=== PATIENT | female | born 1995 | race Caucasian/White ===

== ENCOUNTER 2016-11-30 16:27 | Emergency (ER) | payer SELFPAY ==
[2016-11-30 16:56] VITALS: TEMP 98.1
--- NOTE | 2016-11-30 17:11 | ED.PDOC ---
History of Present Illness - General Chief Complaint: ENT Problem Stated Complaint: right ear pain, dental pain Time Seen by Provider: 11/30/16 17:09 Source: patient Exam Limitations: no limitations - History of Present Illness Initial Comments: The patient is a 21-year-old female presenting to the emergency room secondary topain to the right side of her face that radiates between her posterior molar of her right mandible and her ear on the right side pain has been increasing over the last couple of days. She has had difficulty with activities recently in the past and completed a course of antibiotics about 2 weeks ago for it. She has not seen a dentist recently but is scheduled to see one next week. No fevers. No obvious abscess. No problems with hearing. No rash. Severity: moderate Improving Factors: nothing Worsening Factors: eating Associated Symptoms: denies symptoms Allergies/Adverse Reactions: Allergies Codeine Allergy (Verified 11/30/16 16:56) Rash Acetaminophen [From Hydrocodone W/Acetaminophen] Adverse Reaction (Mild, Verified 11/30/16 16:56) Rash rash and itching Hydrocodone [From Hydrocodone W/Acetaminophen] Adverse Reaction (Mild, Verified 11/30/16 16:56) Rash rash and itching Home Medications: Ambulatory Orders Iynpckdekkdtg-Xdot-Spysibzwys [Fioricet] 1 ea PO Q8H PRN #21 tab 11/30/16 Cephalexin Monohydrate [Keflex] 500 mg PO Q8H #30 cap 11/30/16 Review of Systems - Review of Systems Constitutional: States: malaise EENTM: States: ear pain, mouth pain Respiratory: States: no symptoms reported Cardiology: States: no symptoms reported Gastrointestinal/Abdominal: States: no symptoms reported Genitourinary: States: no symptoms reported Musculoskeletal: States: no symptoms reported Skin: States: no symptoms reported Neurological: States: no symptoms reported Endocrine: States: no symptoms reported All other Systems: No Change from Baseline Past Medical History (General) - Patient Medical History Hx Seizures: No Hx Stroke: No Hx Dementia: No Hx Asthma: No Hx of COPD: No Hx Cardiac Disorders: No Hx Congestive Heart Failure: No Hx Pacemaker: No Hx Hypertension: No Hx Thyroid Disease: No Hx Diabetes: No Hx Gastroesophageal Reflux: No Hx Renal Disease: No Hx Cancer: No Hx of HIV: No Hx Hepatitis C: No Hx MRSA: No Surgical History: tonsillectomy - Vaccination History Hx Tetanus, Diphtheria Vaccination: Yes Hx Influenza Vaccination: No Hx Pneumococcal Vaccination: No - Social History Hx Tobacco Use: No Hx Chewing Tobacco Use: No Hx Alcohol Use: No Hx Substance Use: No Hx Substance Use Treatment: No Hx Depression: No Hx Physical Abuse: No Hx Emotional Abuse: No Hx Suspected Abuse: No - Activities of Daily Living Hospice Agency (if applicable):: None - Female History Patient is a Female of Child Bearing Age (10 -59 yrs old): Yes Hx Last Menstrual Period: 07/31/16 Patient : No Expected Date of Delivery:: 02/13/15 Hx Gestational Age: 8 Family Medical History - Family History Brother Name: Shelby Juarez Age (years): 21, 17 Living Status: Still Living Hx Family Asthma: Yes Hx Family Congestive Heart Failure: No Hx Family Hypertension: No Hx Family Stroke: No Hx Cardiac Disease: No Hx Family Diabetes: No Hx Family Cancer: No Maternal Grandparents Name: Kendra grandmother and Ra grandfather Age (years): 56 (kendra) Living Status: Still Living Age at (years of age): 47 Cause of : Ra- diabetes, was on dialysis Hx Family Asthma: No Hx Family Congestive Heart Failure: No Hx Family Hypertension: Yes - unknown age, both grandparents Hx Family Stroke: Yes - Ra Age of Onset (years of age): 35 Hx Cardiac Disease: No Hx Family Diabetes: Yes - both Age of Onset (years of age): 17 Hx Family Cancer: No Mother Family History: Unknown Name: Sarah Leggett Age (years): 38 Living Status: Still Living Hx Family Asthma: No Hx Family Congestive Heart Failure: No Hx Family Hypertension: Yes Age of Onset (years of age): 35 Hx Family Stroke: No Hx Cardiac Disease: No Hx Family Diabetes: No Hx Family Cancer: No Father Family History: Unknown Name: Neftaly Leggett Age (years): 40 Living Status: Still Living Hx Family Asthma: No Hx Family Congestive Heart Failure: No Hx Family Hypertension: No Hx Family Stroke: No Hx Cardiac Disease: No Hx Family Diabetes: No Hx Family Cancer: No Hx Family;Other: has gout Physical Exam - Physical Exam General Appearance: Alert, Comfortable, No apparent distress Eye Exam: bilateral normal Ears, Nose, Throat: hearing grossly normal, normal pharynx, other - the patient does have a fractured posterior molar on the right lower mandible Neck: non-tender, full range of motion, supple Respiratory: chest non-tender, lungs clear, normal breath sounds, no respiratory distress, no accessory muscle use Cardiovascular/Chest: normal peripheral pulses, regular rate, rhythm, no edema Peripheral Pulses: radial,right: 2+, radial,left: 2+ Gastrointestinal/Abdominal: normal bowel sounds, non tender Rectal Exam: deferred Back Exam: normal inspection Extremity: normal range of motion, non-tender, normal inspection, no pedal edema , normal capillary refill Neurologic: alert, normal mood/affect, oriented x 3 Skin Exam: normal color Comments: Vital Signs - 24 hr 11/30/16 16:42 Temperature 98.1 F Pulse Rate [ 79 pulse ox] Respiratory 20 Rate Blood Pressure 132/79 [Left Arm] O2 Sat by Pulse 98 Oximetry Progress - Progress Progress: 11/30/16 17:11 the patient is a 21-year-old female presenting to the emergency room secondary to pain from dental caries referring to her right ear. The patient will be placed on Keflex 500 mg 3 times daily for 10 days and she will be written for some Fioricet as well for discomfort. She can use ibuprofen as well for discomfort. She needs to get set up with a dentist for definitive care. ER warnings were given for any acute deterioration. Departure - Departure Clinical Impression: Infected dental caries Disposition: Discharge to Home or Self Care Condition: Fair Departure Forms: ED Discharge - Pt. Copy, Patient Portal Self Enrollment Instructions: DI for Tooth Decay Diet: regular diet Activity: increase activity as tolerated Prescriptions: Fdryyerwtbqlq-Ixtc-Hvyszleiks [Fioricet] 1 ea PO Q8H PRN #21 tab PRN Reason: Pain Cephalexin Monohydrate [Keflex] 500 mg PO Q8H #30 cap Home Medications: Ambulatory Orders Hpeekjzzjzaxk-Woqn-Jucfpprvpn [Fioricet] 1 ea PO Q8H PRN #21 tab 11/30/16 Cephalexin Monohydrate [Keflex] 500 mg PO Q8H #30 cap 11/30/16 Additional Instructions: the patient is a 21-year-old female presenting to the emergency room secondary to pain from dental caries referring to her right ear. The patient will be placed on Keflex 500 mg 3 times daily for 10 days and she will be written for some Fioricet as well for discomfort. She can use ibuprofen as well for discomfort. She needs to get set up with a dentist for definitive care. ER warnings were given for any acute deterioration.
[2016-11-30 17:23] VITALS: BP 125/91; O2SAT 99
== END 2016-11-30 17:20 | disposition home or self-care (01) ==
LOC: ER 16:27
DX: K04.7 Periapical abscess without sinus (principal); Z88.6 Allergy status to analgesic agent

== ENCOUNTER 2017-11-06 10:11 | Emergency (ER) | payer SELFPAY ==
[2017-11-06 10:31] VITALS: TEMP 98
[2017-11-06] MEDS: ALUMINUM & MAGNESIUM HYDROXIDE 30 ML UD PO ONE (10:55)
[2017-11-06] MEDS: ONDANSETRON ODT 8 MG TAB SL ONE (10:57)
--- NOTE | 2017-11-06 11:09 | ED.PDOC ---
History of Present Illness - General Chief Complaint: GI Problem Time Seen by Provider: 11/06/17 10:30 Source: patient Exam Limitations: no limitations - History of Present Illness Initial Comments: The patient is a 22-year-old female presenting to the emergency roomecondary to mild generalized abdominal pain a little worse in the epigastric area for the last 24 hours. She's had some mild nausea. no vomiting. She did have some mild constipation that is turned and mild diarrhea. No urinary symptoms. No fevers. No sore throat runny nose cough or congestion. Her only abdominal surgery as a . Timing/Duration: 24 hours Severity: mild Improving Factors: nothing Worsening Factors: nothing Associated Symptoms: loss of appetite, malaise, nausea/vomiting Allergies/Adverse Reactions: Allergies Codeine Allergy (Verified 11/30/16 16:56) Rash Acetaminophen [From Hydrocodone W/Acetaminophen] Adverse Reaction (Mild, Verified 11/30/16 16:56) Rash rash and itching Hydrocodone [From Hydrocodone W/Acetaminophen] Adverse Reaction (Mild, Verified 11/30/16 16:56) Rash rash and itching Home Medications: Ambulatory Orders Dojyfgcxsozxv-Smac-Djykvcouge [Fioricet] 1 ea PO Q8H PRN #21 tab 11/30/16 Cephalexin Monohydrate [Keflex] 500 mg PO Q8H #30 cap 11/30/16 Ciprofloxacin [Cipro] 500 mg PO BID #10 tab 11/06/17 Famotidine 20 mg PO DAILY #30 tab 11/06/17 Ondansetron [Zofran Odt] 4 mg PO Q4H PRN #10 tab 11/06/17 Review of Systems - Review of Systems Constitutional: States: malaise EENTM: States: no symptoms reported Respiratory: States: no symptoms reported Cardiology: States: no symptoms reported Gastrointestinal/Abdominal: States: abdominal pain, constipation, diarrhea, nausea. Denies: vomiting Genitourinary: States: no symptoms reported Musculoskeletal: States: no symptoms reported Skin: States: no symptoms reported Neurological: States: no symptoms reported Endocrine: States: no symptoms reported All other Systems: No Change from Baseline Past Medical History (General) - Patient Medical History Hx Seizures: No Hx Stroke: No Hx Dementia: No Hx Asthma: No Hx of COPD: No Hx Cardiac Disorders: No Hx Congestive Heart Failure: No Hx Pacemaker: No Hx Hypertension: No Hx Thyroid Disease: No Hx Diabetes: No Hx Gastroesophageal Reflux: No Hx Renal Disease: No Hx Cancer: No Hx of HIV: No Hx Hepatitis C: No Hx MRSA: No Surgical History: no surgical history - Vaccination History Hx Tetanus, Diphtheria Vaccination: Yes Hx Influenza Vaccination: No Hx Pneumococcal Vaccination: No - Social History Hx Tobacco Use: No Hx Chewing Tobacco Use: No Hx Alcohol Use: No Hx Substance Use: No Hx Substance Use Treatment: No Hx Depression: No Hx Physical Abuse: No Hx Emotional Abuse: No Hx Suspected Abuse: No - Female History Hx Last Menstrual Period: 07/31/16 Patient : No Expected Date of Delivery:: 02/13/15 Hx Gestational Age: 8 Family Medical History - Family History Brother Name: Shelby Juarez Age (years): 21, 17 Living Status: Still Living Hx Family Asthma: Yes Hx Family Congestive Heart Failure: No Hx Family Hypertension: No Hx Family Stroke: No Hx Cardiac Disease: No Hx Family Diabetes: No Hx Family Cancer: No Maternal Grandparents Name: Kendra grandmother and Ra grandfather Age (years): 56 (kendra) Living Status: Still Living Age at (years of age): 47 Cause of : Ra- diabetes, was on dialysis Hx Family Asthma: No Hx Family Congestive Heart Failure: No Hx Family Hypertension: Yes - unknown age, both grandparents Hx Family Stroke: Yes - Ra Age of Onset (years of age): 35 Hx Cardiac Disease: No Hx Family Diabetes: Yes - both Age of Onset (years of age): 17 Hx Family Cancer: No Mother Family History: Unknown Name: Sarah Leggett Age (years): 38 Living Status: Still Living Hx Family Asthma: No Hx Family Congestive Heart Failure: No Hx Family Hypertension: Yes Age of Onset (years of age): 35 Hx Family Stroke: No Hx Cardiac Disease: No Hx Family Diabetes: No Hx Family Cancer: No Father Family History: Unknown Name: Neftaly Leggett Age (years): 40 Living Status: Still Living Hx Family Asthma: No Hx Family Congestive Heart Failure: No Hx Family Hypertension: No Hx Family Stroke: No Hx Cardiac Disease: No Hx Family Diabetes: No Hx Family Cancer: No Hx Family;Other: has gout Physical Exam - Physical Exam General Appearance: Alert, Comfortable, No apparent distress Eye Exam: bilateral normal Ears, Nose, Throat: hearing grossly normal, normal ENT inspection, normal pharynx Neck: full range of motion, supple Respiratory: lungs clear, normal breath sounds, no respiratory distress, no accessory muscle use Cardiovascular/Chest: normal peripheral pulses, regular rate, rhythm, no edema Peripheral Pulses: radial,right: 2+, radial,left: 2+, dorsalis pedis,right: 2+, dorsalis pedis,left: 2+ Gastrointestinal/Abdominal: soft, other - mild epigastric discomfort palpation. No rebound or peritoneal signs. No definite palpable masses. Rectal Exam: deferred Back Exam: no CVA tenderness, no vertebral tenderness Extremity: normal range of motion, non-tender, normal inspection, no pedal edema , normal capillary refill Neurologic: dredge or [place] hand II-XII nml as tested, alert, normal mood/affect, oriented x 3 Skin Exam: normal color Comments: Vital Signs - 8 hr 11/06/17 11/06/17 10:20 10:57 Temperature 98.0 F Pulse Rate [ 78 71 left brachial] Respiratory 20 16 Rate Blood Pressure 102/66 95/51 [left brachial] O2 Sat by Pulse 96 94 L Oximetry Progress - Progress Progress: 11/06/17 11:09 the patient is a 22-year-old female presenting with what appears to be a mild gastritis that is possibly viral in origin but may also be contributed to by a current cystitis/UTI that she has at this time. The patient is given a dose of Rocephin and will be started on oral ciprofloxacin for 5 days for the urinary tract infection. The urine will be cultured. She should follow up with her primary care doctor next week for follow-up of the urine culture and a repeat urinalysis for test of cure. For the gastritis the patient is going to be written for Zofran for as needed use for nausea and vomiting. Additionally she can hot die picker Pepcid and take that for the next few weeks to help reduce gastritis symptoms and she can hot die picker some Maalox for use as needed over the next couple of days as needed. She is to keep herself well hydrated and maintain a bland diet. Obviously she needs to return to the emergency room for any significant worsening, which would indicate a need for additional workup. - Results/Orders Results/Orders: Laboratory Tests 11/06/17 11/06/17 10:46 10:51 Urine Color Yellow Urine Appearance Clear Urine pH 5.5 Ur Specific [place] 1.025 Urine Protein Negative Urine Glucose (UA) Negative Urine Ketones Negative Urine Blood Small H Urine Nitrite Negative Urine Bilirubin Negative Urine Urobilinogen 0.2 Ur Leukocyte Esterase Trace H Urine RBC 1-3 Urine WBC 20-30 H Ur Epithelial Cells >50 Urine Bacteria 3+ H Urine Mucus Trace Urine HCG, Qual Negative Departure - Departure Clinical Impression: Gastroenteritis, UTI (lower urinary tract infection) Disposition: Discharge to Home or Self Care Condition: Fair Departure Forms: ED Discharge - Pt. Copy, Patient Portal Self Enrollment Instructions: DI for Gastritis, DI for Urinary Tract Infection (UTI) Diet: bland diet Activity: increase activity as tolerated Prescriptions: Ciprofloxacin [Cipro] 500 mg PO BID #10 tab Famotidine 20 mg PO DAILY #30 tab Ondansetron [Zofran Odt] 4 mg PO Q4H PRN #10 tab PRN Reason: Vomiting Home Medications: Ambulatory Orders Bbwaohbzcefwd-Ynyt-Gpljwxlpir [Fioricet] 1 ea PO Q8H PRN #21 tab 11/30/16 Cephalexin Monohydrate [Keflex] 500 mg PO Q8H #30 cap 11/30/16 Ciprofloxacin [Cipro] 500 mg PO BID #10 tab 11/06/17 Famotidine 20 mg PO DAILY #30 tab 11/06/17 Ondansetron [Zofran Odt] 4 mg PO Q4H PRN #10 tab 11/06/17 Additional Instructions: the patient is a 22-year-old female presenting with what appears to be a mild gastritis that is possibly viral in origin but may also be contributed to by a current cystitis/UTI that she has at this time. The patient is given a dose of Rocephin and will be started on oral ciprofloxacin for 5 days for the urinary tract infection. The urine will be cultured. She should follow up with her primary care doctor next week for follow-up of the urine culture and a repeat urinalysis for test of cure. For the gastritis the patient is going to be written for Zofran for as needed use for nausea and vomiting. Additionally she can hot die picker Pepcid and take that for the next few weeks to help reduce gastritis symptoms and she can hot die picker some Maalox for use as needed over the next couple of days as needed. She is to keep herself well hydrated and maintain a bland diet. Obviously she needs to return to the emergency room for any significant worsening, which would indicate a need for additional workup.
[2017-11-06] MEDS ORDERED: LIDOCAINE 1% 10 ML VIAL INJ ONE (11:13)
[2017-11-06] MEDS ORDERED: cefTRIAXone SODIUM 1 GM VIAL ONE (11:30)
[2017-11-06] MEDS: cefTRIAXone SODIUM 1 GM VIAL IM ONE (11:47)
[2017-11-06 12:02] VITALS: BP 111/76; O2SAT 96
== END 2017-11-06 12:04 | disposition home or self-care (01) ==
LOC: ER 10:11
DX: K52.9 Noninfective gastroenteritis and colitis, unspecified (principal); N39.0 Urinary tract infection, site not specified
CPT/HCPCS: 36416; 81001; 81025; 87086; 87502; J0696

== ENCOUNTER 2018-02-10 10:02 | Emergency (ER) | payer OTHER ==
[2018-02-10 10:17] VITALS: TEMP 99.1
--- NOTE | 2018-02-10 10:19 | ED.PDOC ---
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 Abdominal Pain Onset Location: epigastric Pain Radiation: no radiation, epigastric Quality: intermittent, sharpness Timing/Duration: other - 4 days Improving Factors: nothing Worsening Factors: eating Associated Symptoms: denies symptoms Review of Systems - Review of Systems Constitutional: States: no symptoms reported EENTM: States: no symptoms reported Respiratory: States: no symptoms reported Cardiology: States: no symptoms reported Gastrointestinal/Abdominal: States: see HPI Musculoskeletal: States: no symptoms reported All other Systems: Reviewed and Negative, No Change from Baseline Past Medical History (General) - Patient Medical History Hx Seizures: No Hx Stroke: No Hx Dementia: No Hx Asthma: No Hx of COPD: No Hx Cardiac Disorders: No Hx Congestive Heart Failure: No Hx Pacemaker: No Hx Hypertension: No Hx Thyroid Disease: No Hx Diabetes: No Hx Gastroesophageal Reflux: No Hx Renal Disease: No Hx Cancer: No Hx of HIV: No Hx Hepatitis C: No Hx MRSA: No Hx Other PMH: Yes - Charcot Di tooth disease Surgical History: tonsillectomy, other - Vaccination History Hx Tetanus, Diphtheria Vaccination: Yes Hx Influenza Vaccination: No Hx Pneumococcal Vaccination: No - Social History Hx Tobacco Use: No Hx Chewing Tobacco Use: No Hx Alcohol Use: No Hx Substance Use: No Hx Substance Use Treatment: No Hx Depression: No Hx Physical Abuse: No Hx Emotional Abuse: No Hx Suspected Abuse: No - Activities of Daily Living Patient Lives Alone: No - Female History Patient is a Female of Child Bearing Age (10 -59 yrs old): Yes Hx Last Menstrual Period: 12/13/17 Patient : Yes Expected Date of Delivery:: 09/23/18 Hx Gestational Age: 8 Family Medical History - Family History Brother Name: Shelby Juarez Age (years): 21, 17 Living Status: Still Living Hx Family Asthma: Yes Hx Family Congestive Heart Failure: No Hx Family Hypertension: No Hx Family Stroke: No Hx Cardiac Disease: No Hx Family Diabetes: No Hx Family Cancer: No Maternal Grandparents Name: Kendra grandmother and Ra grandfather Age (years): 56 (kendra) Living Status: Still Living Age at (years of age): 47 Cause of : Ra- diabetes, was on dialysis Hx Family Asthma: No Hx Family Congestive Heart Failure: No Hx Family Hypertension: Yes - unknown age, both grandparents Hx Family Stroke: Yes - Ra Age of Onset (years of age): 35 Hx Cardiac Disease: No Hx Family Diabetes: Yes - both Age of Onset (years of age): 17 Hx Family Cancer: No Mother Family History: Unknown Name: Sarah Leggett Age (years): 38 Living Status: Still Living Hx Family Asthma: No Hx Family Congestive Heart Failure: No Hx Family Hypertension: Yes Age of Onset (years of age): 35 Hx Family Stroke: No Hx Cardiac Disease: No Hx Family Diabetes: No Hx Family Cancer: No Father Family History: Unknown Name: Neftaly Leggett Age (years): 40 Living Status: Still Living Hx Family Asthma: No Hx Family Congestive Heart Failure: No Hx Family Hypertension: No Hx Family Stroke: No Hx Cardiac Disease: No Hx Family Diabetes: No Hx Family Cancer: No Hx Family;Other: has gout Physical Exam - Physical Exam General Appearance: Alert, Comfortable, No apparent distress Eyes, Ears, Nose, Throat Exam: normal ENT inspection, pharynx normal, other - non icteric sclerae Neck: non-tender, supple Respiratory: lungs clear, normal breath sounds Cardiovascular/Chest: normal peripheral pulses, regular rate, rhythm, no murmur Peripheral Pulses: No deficit Gastrointestinal/Abdominal: normal bowel sounds, soft, no organomegaly, tenderness - epigastric area;no peritoneal signs Back Exam: no CVA tenderness, no vertebral tenderness Extremity: non-tender, no pedal edema, no calf tenderness Neurologic: no motor/sensory deficits, alert Skin Exam: normal color, warm/dry Lymphatic: no adenopathy Progress - Progress Progress: 02/10/18 10:45 Vital Signs - 8 hr 02/10/18 10:09 Temperature 99.1 F Pulse Rate [ 82 Left Radial] Respiratory 20 Rate Blood Pressure 109/73 [Left Arm] O2 Sat by Pulse 96 Oximetry 02/10/18 10:46 GB /OB sono ordered -not available today explained to patient 02/10/18 12:18 Patient stated has Rx for her N/V from her OB - Results/Orders Results/Orders: 02/10/18 10:37 IV Care:Saline Lock per Protoc QSHIFT Abdomen,Limited [US] Stat OB ,Limited [US] Stat 02/10/18 11:11 URINE CULTURE W/COLONY COUNT Stat Laboratory Results - last 24 hr 02/10/18 02/10/18 02/10/18 11:07 11:07 11:11 WBC 10.2 RBC 4.87 Hgb 14.3 Hct 42.2 MCV 86.6 MCH 29.3 MCHC 33.8 RDW 13.1 Plt Count 262 MPV 8.4 Absolute Neuts (auto) 7.10 H Absolute Lymphs (auto) 2.50 Absolute Monos (auto) 0.50 Absolute Eos (auto) 0.00 Absolute Basos (auto) 0.10 Neutrophils % 69.7 Lymphocytes % 24.5 Monocytes % 4.8 Eosinophils % 0.4 L Basophils % 0.6 Sodium 135 Potassium 4.1 Chloride 103 Carbon Dioxide 24 Anion Gap 12.1 BUN 9 Creatinine 0.54 L BUN/Creatinine Ratio 16.7 Random Glucose 86 Serum Osmolality 268.1 L Calcium 9.2 Total Bilirubin 0.6 AST 14 ALT 18 Alkaline Phosphatase 53 Serum Total Protein 7.3 Albumin 4.0 Globulin 3.3 Albumin/Globulin Ratio 1.2 Lipase 22 Urine Color Yellow Urine Appearance Clear Urine pH 6.0 Ur Specific [place] 1.015 Urine Protein Negative Urine Glucose (UA) Negative Urine Ketones 40 H Urine Blood Negative Urine Nitrite Negative Urine Bilirubin Negative Urine Urobilinogen 0.2 Ur Leukocyte Esterase Small H Urine RBC 3-5 H Urine WBC 3-5 H Ur Epithelial Cells 5-10 Urine Bacteria 2+ H Urine Mucus Small Departure - Departure Clinical Impression: Nausea/vomiting in Qualifiers: Weeks of gestation: 8 weeks Qualified Code(s): Z3A.08 - 8 weeks gestation of Time of Disposition: 12:15 Disposition: Discharge to Home or Self Care Condition: Good Departure Forms: ED Discharge - Pt. Copy, Patient Portal Self Enrollment Instructions: Nausea of (Alternative Therapy), Support ( Alternative Therapy), DI for Vomiting -- Adult Diet: bland diet Referrals: James Mabry MD [Primary Care Provider] - 1-2 Weeks Home Medications: Ambulatory Orders Ondansetron [Zofran Odt] 4 mg PO Q4H PRN #10 tab 11/06/17 RX: Famotidine 20 mg PO DAILY #30 tab 11/06/17 Vit W/ Ferrous Fumara [] 1 tab PO DAILY 02/10/18 Additional Instructions: Return to ER as needed;Follow up with your OB Dr. Raghavendra FAITH
[2018-02-10] MEDS: LACTATED RINGERS 1,000 ML IVS ONE (11:00)
[2018-02-10] MEDS: PROMETHAZINE HCL INJ 25 MG/ML VIAL IM ONE (11:00)
[2018-02-10 12:29] VITALS: BP 109/63; O2SAT 97
== END 2018-02-10 12:39 | disposition home or self-care (01) ==
LOC: ER 10:02
DX: O21.0 Mild hyperemesis gravidarum (principal); Z3A.08 8 weeks gestation of pregnancy

== ENCOUNTER → 2018-02-13 | Outpatient (CLI) | payer MEDICAID ==
--- NOTE | 2018-02-14 09:28 | US ---
EXAM DESCRIPTION: Gall Bladder CLINICAL HISTORY: Cholecystitis PAIN COMPARISON: None Available. TECHNIQUE: Right upper quadrant ultrasound FINDINGS: Pancreas: Visualized portions of the pancreas are unremarkable. Bowel gas obscures some areas. Aorta/inferior vena cava: No aortic aneurysm. Normal inferior vena cava. Liver: The liver is homogeneous in texture with mildly increased echogenicity of the hepatic parenchyma. No focal liver lesion or intrahepatic bile duct dilatation. No liver surface irregularity. Normal appearance of the portal vein and hepatic veins. Gallbladder: Gallbladder appears normal with no intraluminal stones or wall thickening. Common bile duct: Normal caliber measuring 3.7 mm. Right kidney: Renal length is 10.0 cm. Normal cortical echogenicity. Cortical thickness is normal. No hydronephrosis is seen. No renal mass or shadowing calculus. IMPRESSION: No diagnostic abnormality is identified on sonographic examination of the right upper quadrant. Electronically signed by: Billy Chong MD 02/14/2018 9:27 AM CDT
== END ==
LOC: US 15:07
PROVIDERS: ATTEND Obstetrics & Gynecology
DX: K81.9 Cholecystitis, unspecified (principal); Z3A.08 8 weeks gestation of pregnancy

== ENCOUNTER → 2018-08-08 | Outpatient (CLI) | payer OTHER ==
--- NOTE | 2018-08-08 15:42 | US ---
EXAM DESCRIPTION: Breast,Right: Ultrasound CLINICAL HISTORY: 22 yearsFemaleLUMP RUOQ. Probable small nodule on the lateral upper right breast has enlarged since . COMPARISON: None. TECHNIQUE: Transcutaneous scanning of the right breast utilizing gilbert-scale and Doppler modes. Scanning performed by the corporate development associate and Dr. Nova. FINDINGS: Scanning of the right breast at the 900 clock position 8 cm from the nipple or mass is palpable. Heterogeneous breast tissue predominantly fibroglandular echotexture. No distinct solid mass or distinct cyst. No parenchymal edema or large calcifications. No overlying skin changes. No abnormal vascularity. IMPRESSION: Benign exam. BIRAD CATEGORY: 2 BENIGN FINDINGS. RECOMMENDATIONS: FOLLOW UP: begin routine digital bilateral mammographic screening, at age 40. Any further breast imaging before age 40 should continue to be based upon clinical findings. The FINDINGS and the FOLLOW-UP plan were reviewed in person with the patient after the examination. Written communication explaining the IMPRESSION and FOLLOW-UP will be mailed to the patient and referring care provider. Electronically signed by: Errol Nova MD 08/08/2018 3:41 PM CDT
== END ==
LOC: US 13:30
PROVIDERS: ATTEND Obstetrics & Gynecology
DX: N63.0 Unspecified lump in unspecified breast (principal)